=== PATIENT | female | born 1985 | race Caucasian/White ===

== ENCOUNTER → 2017-04-17 | Emergency (ER) | payer OTHER ==
[~2017-04-17] VITALS: Ht 162.6 cm; Wt 72.6 kg
[~2017-04-17] MED LIST: AMLODIPINE BES2.5 MG PO; BP MED; FLEXERIL10 MG PO; IBUPROFEN800 MG PO; LEVOTHYROXINE25 MCG PO; MAGNESIUM27 MG PO; OMEPRAZOLE20 MG PO; PERCOCET 5-3251 EACH PO; PRENATAL TABLE1 EAC1 PO; STOOL SOFT-STI1 EACH; ULTRAM50 MG PO
== END ==
LOC: ED 10:40
DX: S06.9X9A Unspecified intracranial injury with loss of consciousness of unspecified duration, initial encounter (principal); I10 Essential (primary) hypertension; Z87.891 Personal history of nicotine dependence; Z90.710 Acquired absence of both cervix and uterus; Z88.5 Allergy status to narcotic agent; Z79.899 Other long term (current) drug therapy; W01.198A Fall on same level from slipping, tripping and stumbling with subsequent striking against other object, initial encounter
CPT/HCPCS: 70450; 99284

== ENCOUNTER 2020-09-07 06:55 | Day surgery (SDC) | payer OTHER ==
[~2020-09-07] VITALS: Ht 162.6 cm; Wt 68.0 kg
--- NOTE | ~2020-09-07 | OR ---
[facility] [address] [place], [place] [address] Draft DATE OF OPERATION: 09/07/2020 SURGEON: Elena Lebron DO PREOPERATIVE DIAGNOSES: 1. Dyspareunia. 2. Suspected pelvic adhesions. POSTOPERATIVE DIAGNOSES: 1. Dyspareunia. 2. Pelvic adhesions. PROCEDURES PERFORMED: 1. Right oophorectomy. 2. Ureterolysis. 3. Cystoscopy. MALL MANAGER: Luís Gao MD. ANESTHESIA: General. ESTIMATED BLOOD LOSS: 25 mL. SPECIMEN: Right ovary. FINDINGS: Normal external genitalia and vagina. Right ovary with dense adhesions to the right vaginal apex. Ureterolysis was performed that demonstrated the course of the ureter and the pelvis. On cystoscopy, normal urethra, bladder and bilateral ureteral jets. COMPLICATIONS: None. INDICATIONS: Ms. Hargrove is a pleasant 35-year-old G2, P2, white female with a long history of chronic pelvic pain and dyspareunia following hysterectomy 7 years ago. She has had PATIENT NAME: LAWSON HARGROVE OPERATIVE REPORT DATE OF : [birth year] REPORT #: [id number] PHYSICIAN: ELENA LEBRON DO PCP: [facility] REPORT IS CONFIDENTIAL AND NOT TO BE RELEASED WITHOUT AUTHORIZATION [facility] [address], [place] [address] Draft significant dyspareunia with episode of intimacy and ovulatory pain. Ultrasound demonstrated left ovary was suspected to be adjacent to the vaginal cuff. On exam, patient had mass at the vaginal apex that reproduced her pain. Risks, benefits, and alternatives were discussed in detail with the patient and diagnostic laparoscopy with possible oophorectomy was scheduled. Risks, benefits, and alternatives were discussed with the patient. The patient understands and wished to proceed with the procedure. TECHNIQUE: The patient was taken to the operating room where a time-out was performed to confirm correct patient and correct procedure. General anesthesia was adequately established. The patient was prepped and draped in the dorsal lithotomy position with feet in Yellofin stirrups. ICPs were on running and 2 g Ancef were given preoperatively. No heparin was indicated. ICPs were on and running. A Welsh catheter was inserted and EEA Sizer was placed into the vagina to provide countertraction at the vaginal apex. Attention was then turned to laparoscopy after the surgeon's gloves were changed. The base of the umbilicus was infiltrated with 0.25% Marcaine with epinephrine and a 5 mm stab incision was made. A 5 mm port was used to enter the abdomen in a direct visual entry manner without complication. Survey of the abdomen and pelvis was performed that demonstrated normal right upper quadrant diaphragm. The pelvis demonstrated surgically absent uterus and bilateral fallopian tubes. The left ovary was normal in its physiologic position. The right ovary was densely scarred to the right vaginal apex. Decision was made to proceed with right oophorectomy as previously discussed with the patient. The right infundibulopelvic ligament was noted crossing the pelvic brim and just medial to that, the ureter was easily identified. The IP ligament was fulgurated and divided just distal to the pelvic brim with excellent visualization of the ureter through the entire process. After the IP was fulgurated and divided, an Endostitch device was used to secure ligament. Excellent hemostasis was appreciated. The peritoneum was then entered and the course of the ureter was followed for several cm. The ovary was grasped and pulled medially and the course of the ureter was followed further. A suction-cafe helper device was used to provide hydrodissection and Kittner device was used to again follow the course of the ureter until it was noted to be well away from the adhesions of the ovary to the right vaginal apex. At this point, the dissection of the ovary away from the vaginal apex was completed using the LigaSure device with excellent results. The ovary was then placed in a 5 cm EndoCatch bag and removed without difficulty. The pelvis was irrigated and found to be hemostatic. Tisseel was applied to the retroperitoneal dissection. The pneumoperitoneum was reduced. Trocars were removed and trocar sites were repaired using 4-0 Monocryl. Attention was then turned to cystoscopy. The Welsh catheter was removed and a 70-degree cystoscope was placed in the urethral meatus and advanced under direct visualization into the bladder. Normal bladder and bilateral ureteral jets were observed. The bladder was drained. The patient was taken to the PACU in good and stable condition. Sponge, needle and instrument count were correct x2 at the end of the PATIENT NAME: LAWSON HARGROVE OPERATIVE REPORT DATE OF : 87 REPORT #: [id number] PHYSICIAN: ELENA LEBRON DO PCP: [facility] REPORT IS CONFIDENTIAL AND NOT TO BE RELEASED WITHOUT AUTHORIZATION [facility] [address] [place] [id number] Gao was present and participated in all portions of the procedure. Elena Lebron DO JDChaparro/IGOR /[id number] Copies: ~ PATIENT NAME: LAWSON HARGROVE OPERATIVE REPORT DATE OF : [birth year] REPORT #: [id number] PHYSICIAN: ELENA LEBRON DO PCP: [facility] REPORT IS CONFIDENTIAL AND NOT TO BE RELEASED WITHOUT AUTHORIZATION
[~2020-09-07 06:55] MED LIST changes: +FIBER500 MG PO; +GNP B-COMPLEX1 EACH PO; +MELATONIN1 MG PO; +MIXED TOCOTRIE1 EACH PO; +OSTERA TABLET1 EACH PO; +TAMOXIFEN CITRA10 MG PO
--- NOTE | 2020-09-07 11:04 | NUR ---
PT ALERT, ORIENTED AND SUPPORTED BY HER CHRISTINE. BOTH ARE PLEASANT, CHRISTINE VERY ATTENTIVE AND SUPPORTING OF PT. HE WILL REMAIN AT [facility] DURING SURGERY. ALL QUESTIONS ASKED ANSWERED. PT REQUESTED PRAYER AND WARM BLANKET
--- NOTE | 2020-09-07 11:11 | NUR ---
09/07/20 1111 Katerine Gold 1104-PATIENT ARRIVED TO PACU ON 6L MASK RR EVEN PATIENT REACTIVE TO VOICE VERY DROWSY EYES CLOSED MOANED AND MUMBLING. MOVES LOWER EXTREMITIES ORIENTED TO PACU.SR. 3 LAP SITES TO ABDOMEN CDI 1110-PATIENT BACK TO SLEEP RR EVEN 6L MASK 100%
--- NOTE | 2020-09-07 11:45 | NUR ---
PATIENT UP TO BATHROOM VOIDED 400 ML OF FLOURESCENT YELLOW URINE. TOLERATED AMBULATING WELL. EATING AND DRINKING WELL, NO NAUSEA. PATIENT REFUSED PAIN MEDICATION, REPORTS MOST OF PAIN IN COLLAR BONE AREA. REASSURED PATIENT, PROVIDED MEDICAITON PER MAR. PATIENT THEN DRESSED SELF, PROIVDED DISCHARGE EDUCATION. PATIENT THEN WAS PROVIDED WHEELCHAIR TO FRONT TO [facility]. IN ROOM FOR DISCHARGE INSTRUCTION, VERBALIZED UNDERSTANDING. ANSWERED ALL QUESTIONS AND CONCERNS.
--- NOTE | 2020-09-07 11:51 | NUR ---
PATIENT TO ROOM FROM PACU. APPEARS DROWSY, RESPONDS TO VERBAL STIMULI. REPORTS NO PAIN OR NAUSEA. STATES " I JUST FEEL COLD" PROVIDED WARMING MEASURES. CALL LIGHT WITHIN REACH. DRESSING C/D/I TO ABDOMEN.
== END 2020-09-07 12:55 | disposition home or self-care (01) ==
LOC: OPS 06:55 → DS 06:55 → OPS 09:00 → DS 09:00 → OPS 12:55
PROVIDERS: ATTEND Obstetrics & Gynecology
PROC: 0TJB8ZZ Inspection of Bladder, Via Natural or Artificial Opening Endoscopic (ICD-10-PCS; 2020-09-07)
PROC: 0TN64ZZ Release Right Ureter, Percutaneous Endoscopic Approach (ICD-10-PCS; principal; 2020-09-07 09:00)
PROC: 0UT04ZZ Resection of Right Ovary, Percutaneous Endoscopic Approach (ICD-10-PCS; 2020-09-07 09:00)
DX: N73.6 Female pelvic peritoneal adhesions (postinfective) (principal); N94.10 Unspecified dyspareunia; I73.00 Raynaud's syndrome without gangrene; T88.59XD Other complications of anesthesia, subsequent encounter; F17.290 Nicotine dependence, other tobacco product, uncomplicated; G43.909 Migraine, unspecified, not intractable, without status migrainosus; Z88.5 Allergy status to narcotic agent
CPT/HCPCS: 00840; J0131; J0330; J0690; J1100; J1790; J1885; J2001; J2250; J2405; J2704; J3475; J7121

== ENCOUNTER 2021-01-16 14:31 | Emergency (ER) | payer OTHER ==
[~2021-01-16] VITALS: Ht 162.6 cm; Wt 67.1 kg
== END 2021-01-16 16:27 | disposition home or self-care (01) ==
LOC: ED 14:31
DX: F45.8 Other somatoform disorders (principal); T50.B95A Adverse effect of other viral vaccines, initial encounter; G43.909 Migraine, unspecified, not intractable, without status migrainosus; Z87.891 Personal history of nicotine dependence; Z88.5 Allergy status to narcotic agent; Z79.899 Other long term (current) drug therapy
CPT/HCPCS: 80053; 85025; 99284; J7030

== ENCOUNTER 2022-01-06 19:30 | Emergency (ER) | payer OTHER ==
[~2022-01-06] VITALS: Ht 162.6 cm; Wt 67.1 kg
[2022-01-06] MEDS ORDERED: SERTRALINE HCL50 MG PO (19:40)
[2022-01-06] MEDS ORDERED: VENLAFAXINE HCL75 M1 PO (19:41)
== END 2022-01-06 21:10 | disposition home or self-care (01) ==
LOC: ED 19:30
DX: T59.811A Toxic effect of smoke, accidental (unintentional), initial encounter (principal); R06.02 Shortness of breath; R56.9 Unspecified convulsions; C56.9 Malignant neoplasm of unspecified ovary; Z88.5 Allergy status to narcotic agent; Z79.899 Other long term (current) drug therapy; Z87.891 Personal history of nicotine dependence
CPT/HCPCS: 36415; 71045; 80053; 82803; 85025; G0480; J7121

== ENCOUNTER 2022-12-25 09:01 | Emergency (ER) | payer BC, OTHER ==
[~2022-12-25] VITALS: Ht 162.6 cm; Wt 67.1 kg
--- OUTSIDE RECORDS SUMMARY | ~2022-12-25 | XMS | Continuity of Care Document ---
Demographics + + + | Address | [address] | | | [place] [address] | + + + | Preferred Language | Unknown | + + + | Marital Status | | + + + | Buddhism Affiliation | Unknown | + + + | Race | White | + + + | Ethnic Group | Unknown | + + + Author + + + | Author | [facility] | + + + | Organization | [facility] | + + + | Address | [address] | | | [place] [address] | + + + | Phone | | + + + Care Team Providers + + + + | Care Sales And Service Agent Name | Role | Phone | + + + + Unavailable | Unavailable | + + + + Allergies No information. Encounters No information. Functional Status No information. Immunizations No information. Medications No information. Problems + + + + | date | description | facility | + + + + | 2022-12-23 16:52 | [facility] | [facility] | + + + + Procedures No information. Results/Labs No information. Social History No information. Vital Signs No information."
[~2022-12-25 09:01] MED LIST changes: +SERTRALINE HCL50 MG PO; +VENLAFAXINE HCL75 M1 PO
--- OUTSIDE RECORDS SUMMARY | 2022-12-25 09:05 | XMS ---
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 Care History Medical/Surgical 04/09/2018 [facility] \T\middot; \T\nbsp; PATIENT IS A [employer]BER. \T\middot;\T\nbsp; PLEASE REFER PATIENT TO [facility] FOR NON EMERGENT MEDICAL NEEDS. \T\middot;\ T\nbsp; [facility] CAN SEE PATIENTS SAME DAY FOR APTS IF PATIENT CALLS FIRST THING IN THE MORNING. E.D. VISIT COUNT (12 MO.) 2 [facility] TOTAL 2 NOTE: Visits indicate total known visits. ED/UCC VISIT TRACKING (12 MO.) 12/25/2022 09:02 [facility] TYPE: Emergency COMPLAINT: - CHEST PRESSURE 01/06/2022 19:31 [facility] TYPE: Emergency COMPLAINT: - DIFF BREATHING DIAGNOSES: - Allergy status to narcotic agent - Malignant neoplasm of unspecified ovary - Other terminal operator (current) drug therapy - Personal history of nicotine dependence - Shortness of breath - Toxic effect of smoke, accidental (unintentional), initial encounter - Unspecified convulsions INPATIENT VISIT TRACKING (12 MO.) No inpatient visits to display in this time frame [email or web address]
[2022-12-25] MEDS ORDERED: ATIVAN1 MG PO (10:32)
[2022-12-25 10:54] VITALS: BP 129/83
--- NOTE | 2022-12-27 00:05 | EKG ---
[facility] [address] [facility] [place] [address] Signed Normal sinus rhythm Prolonged QT Abnormal ECG When compared with ECG of 19-MAR-2018, No significant change was found Confirmed by Antony Sam MD () on 12/27/2022 12:04:43 AM Electronically Signed By: ANTONY SAM MD 12/27/22 0005 PATIENT NAME: LAWSON HARGROVE Electrocardiogram DATE OF : 87 PHYSICIAN: ANTONY SAM MD REPORT #: [id number] REPORT IS CONFIDENTIAL AND NOT TO BE RELEASED WITHOUT AUTHORIZATION
== END 2022-12-25 10:55 | disposition home or self-care (01) ==
LOC: ED 09:01
DX: F41.0 Panic disorder [episodic paroxysmal anxiety] (principal); E03.9 Hypothyroidism, unspecified; Z87.891 Personal history of nicotine dependence; Z88.5 Allergy status to narcotic agent; Z79.890 Hormone replacement therapy
CPT/HCPCS: 36415; 71045; 80053; 83735; 83880; 84484; 85025; 85379; 85610; 93005; 93010; 96374; 99285 25; J2060

== ENCOUNTER 2023-12-12 18:21 | Emergency (ER) | payer BC, OTHER ==
[~2023-12-12] VITALS: Ht 162.6 cm; Wt 63.3 kg
[~2023-12-12 18:21] MED LIST changes: +ATIVAN1 MG PO; +BIOTIN5000 MCG PO; +MULTI VITAMIN1 EACH PO; +OZEMPIC2 MG/0.75
[2023-12-12 19:04] VITALS: BP 117/84
== END 2023-12-12 19:03 | disposition left against medical advice (07) ==
LOC: ED 18:21
DX: E16.2 Hypoglycemia, unspecified (principal); R41.0 Disorientation, unspecified; R40.0 Somnolence; Z53.29 Procedure and treatment not carried out because of patient's decision for other reasons
CPT/HCPCS: 80053; 85025

== ENCOUNTER 2024-09-22 12:16 | Emergency (ER) | payer OTHER ==
[~2024-09-22] VITALS: Ht 162.6 cm; Wt 74.8 kg
[2024-09-22] MEDS ORDERED: ASPIRIN 81 MG CHEW PO ONE (12:30)
[2024-09-22] MEDS ORDERED: NITROGLYCERIN 0.4 MG SUBL SL PRN (12:30)
[2024-09-22] MEDS ORDERED: PHENAZOPYRIDIN200 MG PO (12:35)
[2024-09-22] MEDS ORDERED: NITROFURANTOIN100 M1 PO (12:35)
[2024-09-22] MEDS ORDERED: ESTRADIOL0.5 MG PO (12:35)
[2024-09-22 12:39] LABS: BASOPHILS 0.7 % (0-2); EOSINOPHILS 1.1 % (0-6); HEMATOCRIT 37.5 % (35.0-50.0); HEMOGLOBIN 12.8 g/dL (12.0-18.0); MCH 28.8 (27-36); MCHC 34.1 g/dl (30-36); MCV 84.4 fl (81-99); MONOCYTES 6.7 % (0-12); NEUTROPHILS 68.5 % (39-80); PLATELET COUNT 239 K/uL (140-440); RBC 4.45 M/ul (4.3-5.7)
[2024-09-22 13:00] LABS: ALBUMIN 3.4 g/dL (3.4-5.0); ALBUMIN/GLOBULIN RATIO 1.03 (1.1-2.4); ALKALINE PHOSPHATASE 43 U/L (46-116); ALT (SGPT) 24 U/L (14-59); ANION GAP 9.9 (7-21); AST (SGOT) 13 U/L (15-37); BILIRUBIN, TOTAL 0.2 mg/dL (0.2-1.0); BUN/CREATININE RATIO 20.73 (6.0-28.6); CALCIUM 8.5 mg/dL (8.5-10.1); CARBON DIOXIDE 28 mmol/L (21-32); CHLORIDE 103 mmol/L (98-107); CREATININE, SERUM 0.82 mg/dL (0.55-1.02); GLOMERULAR FILTRATION RATE,EST 94 mL/min (>60); MAGNESIUM 1.9 mg/dL (1.8-2.4); POTASSIUM 3.9 mmol/L (3.5-5.1); PROTEIN, TOTAL 6.7 g/dL (6.4-8.2); UREA NITROGEN 17 mg/dL (7-18)
[2024-09-22 16:00] VITALS: BP 118/87
--- NOTE | 2024-09-23 10:38 | EKG ---
[facility] [address] [facility] [place], [place] [address] Signed Normal sinus rhythm Normal ECG No previous ECGs available Confirmed by Cyn Ross DO ([id number]) on 09/23/2024 10:37:49 AM Electronically Signed By: CYN ROSS DO 09/23/24 1038 PATIENT NAME: LAWSON HARGROVE Electrocardiogram DATE OF : 87 PHYSICIAN: CYN ROSS DO REPORT #: [id number] REPORT IS CONFIDENTIAL AND NOT TO BE RELEASED WITHOUT AUTHORIZATION
== END 2024-09-22 16:05 | disposition home or self-care (01) ==
LOC: ED 12:16
PROVIDERS: Emergency Medicine
DX: R07.89 Other chest pain (principal); F43.10 Post-traumatic stress disorder, unspecified; Z88.5 Allergy status to narcotic agent; Z79.899 Other long term (current) drug therapy; Z87.891 Personal history of nicotine dependence
CPT/HCPCS: 36415; 71045; 80053; 83735; 84484; 85025; 85379; 93005; 93010; 99285-25; A9270

== ENCOUNTER 2025-03-30 11:05 | Emergency (ER) | payer OTHER ==
[~2025-03-30] VITALS: Ht 162.6 cm; Wt 93.9 kg
[~2025-03-30 11:05] MED LIST changes: +ESTRADIOL0.5 MG PO; +NITROFURANTOIN100 M1 PO; +PHENAZOPYRIDIN200 MG PO
[2025-03-30] MEDS ORDERED: FLUVOXAMINE MAL50 MG PO (11:36)
[2025-03-30] MEDS ORDERED: WELLBUTRIN SR100 MG PO (11:37)
[2025-03-30] MEDS ORDERED: SODIUM CHLORIDE 0.9% 500 ML IV PRN (13:15)
[2025-03-30] MEDS ORDERED: KETOROLAC TROMETHAMINE 15 MG/ML VIAL IV ONE (13:15)
[2025-03-30 15:06] VITALS: BP 124/75
== END 2025-03-30 15:14 | disposition home or self-care (01) ==
LOC: ED 11:05
DX: G43.909 Migraine, unspecified, not intractable, without status migrainosus (principal); Z88.5 Allergy status to narcotic agent; Z88.8 Allergy status to other drugs, medicaments and biological substances
CPT/HCPCS: 70450; J1200; J1885; J7040